=== PATIENT | female | born 1985 | race Caucasian/White ===

== ENCOUNTER 2017-05-27 11:05 | Outpatient (CLI) | payer MEDICAID ==
[2017-05-27 11:29] LABS: BASOPHILS # (AUTO) 0.2 10^3/uL (0.0-0.1); BASOPHILS % (AUTO) 1.8 %; EOSINOPHILS % (AUTO) 0.5 %; HCT - HEMATOCRIT 38.1 % (37.0-47.0); HGB - HEMOGLOBIN 13.3 g/dL (12.0-16.0); LYMPHOCYTES # (AUTO) 1.1 10^3/uL (1.5-3.5); LYMPHOCYTES % (AUTO) 12.1 %; MEAN CORPUSCULAR HGB CONC 34.9 g/dL (32.0-36.0); MEAN CORPUSCULAR VOLUME 88.9 fL (81.0-99.0); MEAN PLATELET VOLUME 9.7 fL (7.9-10.8); MONOCYTES # (AUTO) 0.3 10^3/uL (0.0-1.0); MONOCYTES % (AUTO) 3.7 %; NEUTROPHILS # (AUTO) 7.7 10^3/uL (1.5-6.6); NEUTROPHILS % (AUTO) 81.9 %; RED BLOOD COUNT 4.29 10^6/uL (4.20-5.40); RED CELL DISTRIBUTION WIDTH 12.8 % (12.0-15.0); UNCORRECTED WHITE BLOOD COUNT 9.4 x10^3/uL; WHITE BLOOD COUNT 9.4 x10^3/uL (4.8-10.8)
[2017-05-27 12:26] LABS: BILIRUBIN,URINE NEGATIVE (NEGATIVE)
[2017-05-27 12:42] LABS: WBC,URINE 0-3 /HPF (0-5)
== END 2017-05-27 11:06 | disposition home or self-care (01) ==
LOC: LAB 11:05
PROVIDERS: ATTEND Obstetrics & Gynecology
DX: Z36 Encounter for antenatal screening of mother (principal)
CPT/HCPCS: 36415; 81001; 81599; 85025; 86762; 86850; 86900; 86901; 87340; 87389

== ENCOUNTER 2017-07-15 10:41 | Outpatient (CLI) | payer MEDICAID ==
[2017-07-16 12:31] LABS: TEST RESULT REPORT
== END 2017-07-15 10:42 | disposition home or self-care (01) ==
LOC: LAB 10:41
PROVIDERS: ATTEND Obstetrics & Gynecology
DX: Z13.79 Encounter for other screening for genetic and chromosomal anomalies (principal)
CPT/HCPCS: 36415; 81599; 82105; 82677; 84702; 86336

== ENCOUNTER 2017-08-16 12:34 | Outpatient (CLI) | payer MEDICAID ==
--- NOTE | 2017-08-20 16:38 | Ultrasound Report ---
ULTRASOUND ANATOMIC SURVEY: 08/16/2017 TECHNIQUE: Real-time scanning was performed with visitor services representative static images obtained. LAST MENSTRUAL PERIOD 03/22/2017 Clinical Age 21 weeks 0 days US Age 21 weeks 0 days EFW [place] 414 g EFW% Hadlock --- Heart Rate 144 bpm [facility] 12/27/2017 US EDC 12/27/2017 BPD [place] 21 weeks 0 days; Mean mm 49.4 HC [place] 20 weeks 5 days; Mean mm 184.0 AC [place] 21 weeks 6 days; Mean mm 168.6 FL [place] 20 weeks 6 days; Mean mm 34.4 Presentation breech Placental Location posterior Cervical Length 5.1 cm Amniotic Fluid --- FINDINGS: heart rate 144 beats per minute. EGA clinical established 21 weeks 0 days with GODFREY 12/27/2017. EGA via current ultrasound also 21 weeks 0 days, GODFREY 12/27/2017. Variable presentation. Placenta location posterior without evidence of placenta previa. There is fluid in the cervix although no specific funneling is seen. On one of the images, there is concern for a possible incomplete interatrial septum. No other discrete cardiac abnormality is seen. The left and right ventricular outflow tracts appear normally configured. The following anatomy is visualized: Head, spine, profile, nose-lips, upper and lower extremities, 4 chamber heart, LVOT, RVOT, stomach, kidneys, bladder, diaphragm, cord insertion, and 3 vessel cord. IMPRESSION: 1. THERE IS FLUID IN THE CERVIX. FOLLOWUP IS NEEDED, ALTHOUGH NO DISTINCT CERVICAL FUNNELING IS SEEN ON THIS EXAM. 2. POSSIBLE INCOMPLETE INTERATRIAL SEPTUM. STRONGLY CONSIDER MATERNAL MEDICINE CONSULTATION. NO OTHER ANOMALIES. 3. EGA 21 WEEKS 0 DAYS WITH [facility]RE[facility] 12/27/2017. [facility]
== END 2017-08-16 12:35 | disposition home or self-care (01) ==
LOC: DI 12:34
PROVIDERS: ATTEND Obstetrics & Gynecology
DX: Z36.9 Encounter for antenatal screening, unspecified (principal); O28.8 Other abnormal findings on antenatal screening of mother; Z3A.21 21 weeks gestation of pregnancy
CPT/HCPCS: 76811

== ENCOUNTER 2017-09-11 09:21 | Outpatient (CLI) | payer MEDICAID ==
[2017-09-11 10:45] LABS: HGB - HEMOGLOBIN 12.3 g/dL (12.0-16.0); MEAN CORPUSCULAR HEMOGLOBIN 30.8 pg (27.0-31.0); MEAN CORPUSCULAR HGB CONC 34.4 g/dL (32.0-36.0); MEAN CORPUSCULAR VOLUME 89.5 fL (81.0-99.0); MEAN PLATELET VOLUME 9.8 fL (7.9-10.8); RED CELL DISTRIBUTION WIDTH 13.3 % (12.0-15.0); WHITE BLOOD COUNT 9.5 x10^3/uL (4.8-10.8)
== END 2017-09-11 09:22 | disposition home or self-care (01) ==
LOC: LAB 09:21
PROVIDERS: ATTEND Obstetrics & Gynecology
DX: Z34.90 Encounter for supervision of normal pregnancy, unspecified, unspecified trimester (principal)
CPT/HCPCS: 36415; 82950; 86850

== ENCOUNTER 2017-11-12 11:03 | Outpatient (CLI) | payer MEDICAID | END 2017-11-12 11:04 | disposition home or self-care (01) | LOC: LAB 11:03 | PROVIDERS: ATTEND Obstetrics & Gynecology | DX: J10.1 Influenza due to other identified influenza virus with other respiratory manifestations (principal) | CPT/HCPCS: 87275; 87276 ==

== ENCOUNTER 2017-11-26 12:00 | Outpatient (CLI) | payer MEDICAID | END 2017-11-26 12:01 | disposition home or self-care (01) | LOC: LAB.R 12:00 | PROVIDERS: ATTEND Obstetrics & Gynecology | DX: Z36.85 Encounter for antenatal screening for Streptococcus B (principal) | CPT/HCPCS: 87081 ==

== ENCOUNTER 2017-12-31 23:25 | Inpatient (IN) | payer MEDICAID ==
[2018-01-01] MEDS ORDERED: SODIUM CHLORIDE FLUSH 0.9% 10 ML SYRINGE IVP PRN (01:18)
[2018-01-01] MEDS ORDERED: ONDANSETRON 4 MG/2 ML VIAL IVP PRN ×2 (01:22→03:22)
[2018-01-01] MEDS: LACTATED RINGERS 1,000 ML IV SCH ×3 (01:47→18:10)
[2018-01-01] MEDS ORDERED: OXYTOCIN/SODIUM CHLORIDE 500 ML IV ONE (01:54)
[2018-01-01 02:31] LABS: BASOPHILS % (AUTO) 0.2 %; EOSINOPHILS # (AUTO) 0.1 10^3/uL (0.0-0.7); HGB - HEMOGLOBIN 11.5 g/dL (12.0-16.0); LYMPHOCYTES # (AUTO) 1.6 10^3/uL (1.5-3.5); MEAN CORPUSCULAR HEMOGLOBIN 27.8 pg (27.0-31.0); MEAN CORPUSCULAR HGB CONC 33.2 g/dL (32.0-36.0); MEAN CORPUSCULAR VOLUME 83.6 fL (81.0-99.0); MEAN PLATELET VOLUME 10.8 fL (7.9-10.8); MONOCYTES # (AUTO) 0.6 10^3/uL (0.0-1.0); MONOCYTES % (AUTO) 5.7 %; NEUTROPHILS # (AUTO) 8.9 10^3/uL (1.5-6.6); NEUTROPHILS % (AUTO) 79.1 %; PLT - PLATELET COUNT 191 10^3/uL (130-450); RED BLOOD COUNT 4.12 10^6/uL (4.20-5.40); RED CELL DISTRIBUTION WIDTH 15.7 % (12.0-15.0); WHITE BLOOD COUNT 11.3 x10^3/uL (4.8-10.8)
[2018-01-01] MEDS ORDERED: BUPIVACAINE 0.25% PF 30 ML VIAL SUBQ ONE (03:00)
[2018-01-01] MEDS ORDERED: fent/BUPIV 2 MCG/0.125% 250 ML EP ONE (03:18)
[2018-01-01] MEDS ORDERED: LACTATED RINGERS 500 ML IV ONE (03:22)
[2018-01-01] MEDS ORDERED: NALOXONE 0.4 MG/ML VIAL IVP PRN (03:22)
[2018-01-01] MEDS ORDERED: fent/BUPIV 2 MCG/0.125% 250 ML EP PRN (03:22)
[2018-01-01] MEDS ORDERED: ePHEDrine 50 MG/ML VIAL IVP PRN (03:22)
[2018-01-01] MEDS ORDERED: NALBUPHINE 20 MG/ML AMP IVP PRN (03:22)
[2018-01-01] MEDS ORDERED: OXYTOCIN/SODIUM CHLORIDE 500 ML IV SCH (05:33)
--- NOTE | 2018-01-01 07:41 | HISTORY & PHYSICAL EXAMINATION ---
Admit History - Instructions [place]ash: -Left hand click circles element as positive or present. -Right hand click slashes element as negative or not present. - Visit Reason Visit Reason: Contractions (Pt developed Contractions yesterday at 0500. was seen in the clinic and was 2/80/-3. contractions became very painful at 2400. presented to L&D about 0100, monitored for 1 hour andnoted to change. adimtted for labor. Epidurla placed for paijn control. AROM at about 0610. Cx at 0530 was 5/100/-1.) - : 3 Parity: 1 Premature: 0 Ectopic: 0 : 1 Care: positive: [facility] (Pt was started on OB visits at 9.3 weeks Regular visits. Labs O+, 103 50 gm. Rhubella immune.) Risk/History: positive: None Complications This : positive: None Smoking Status: Never smoker - Mother's Labs Mother's Blood Type: positive: O Mother's RH: positive: Positive GBS: positive: Group B Step Negative Rubella Status: positive: Immune Meds/Allgy - Allergies Allergies/Adverse Reactions: Allergies Allergy/AdvReac Type Severity Reaction Status Date / Time No Known Drug Allergies Allergy Verified 01/01/18 01:17 Review of Systems - Constitutional Constitutional: reports: Fatigue - Eyes Eyes: denies: Pain - Ears, Nose & Throat Ears, Nose & Throat: denies: Ear pain, Hearing loss - Cardiovascular Cariovascular: denies: Irregular heart rate, Palpitations - Respiratory Respiratory: denies: Cough - Gastrointestinal Gastrointestinal: denies: Abdominal pain - Genitourinary Genitourinary: denies: Dysuria - Musculoskeletal Musculoskeletal: denies: Muscle pain Physical - Abdominal Exam Vital Signs: Temp Pulse Resp BP Pulse Ox 36.6 C 95 18 148/85 H 97 12/31/17 23:42 12/31/17 23:42 12/31/17 23:42 12/31/17 23:42 12/31/17 23:42 Contraction Intensity: positive: Moderate to strong, Irritability - Monitoring Strip Review: positive: Category I - Presentation Presentation: positive: Vertex - Vaginal Exam Membranes: positive: Membranes ruptured (0610) Dilation (in cm): 5 Effacement (%): 100 Station: positive: -1 Cervical Position: positive: Anterior - Speculum Exam Speculum Exam Performed: positive: No Findings: positive: Gross leak Plan for Labor - Plan For Labor I expect patient to be DC'd or transferred within 96 hours.: Yes Plan for Labor: Pitocin has been started.
--- NOTE | 2018-01-01 09:08 | PROVIDER PROGRESS NOTE ---
Labor Progress Note - Uterine Monitoring Uterine Monitoring Mode: positive: External toco Contraction Frequency (min/apart): 2-3 on pitocin Contraction Intensity: positive: Moderate to strong Uterine Resting Tone: positive: Soft - Monitoring Monitor Mode: positive: External ultrasound Heart Rate Variability: positive: Moderate (6-25 bmp) Accelerations: positive: Present, 15x15 Decelerations: positive: None Strip Review: positive: Category I - Vaginal Exam Dilation (in cm): (Deferred but /-1 at last check) - Labor Progress Note Labor Progress Note/Additional Text: 32 yo with a 40w5d IUP Active labor SROM 06:11, clear fluid S/p epidural placement around 01:14 Last CVE /-1 at about 05:30 Pitocin augmentation Continue pitocin and epidural Prepare for shoulder dystocia given history of shoulder dystocia with first child, a female. This is a male fetus. Expect delivery later this AM Labs, EKG, Meds, Allergy - Lab Results Fish Bones: 01/01/18 01:30 Other Lab Results: Lab Results x24hrs 01/01/18 Range/Units 01:30 WBC 11.3 H (4.8-10.8) x10^3/uL RBC 4.12 L (4.20-5.40) 10^6/uL Hgb 11.5 L (12.0-16.0) g/dL Hct 34.5 L (37.0-47.0) % MCV 83.6 (81.0-99.0) fL MCH 27.8 (27.0-31.0) pg MCHC 33.2 (32.0-36.0) g/dL RDW 15.7 H (12.0-15.0) % Plt Count 191 (130-450) 10^3/uL MPV 10.8 (7.9-10.8) fL Neut # 8.9 H (1.5-6.6) 10^3/uL Lymph # 1.6 (1.5-3.5) 10^3/uL Williamson # 0.6 (0.0-1.0) 10^3/uL Eos # 0.1 (0.0-0.7) 10^3/uL Baso # 0.0 (0.0-0.1) 10^3/uL Absolute Nucleated RBC 0.00 x10^3/uL Nucleated RBC % 0.0 /100WBC - Allergy Allergy: Allergies Allergy/AdvReac Type Severity Reaction Status Date / Time No Known Drug Allergies Allergy Verified 01/01/18 01:17
[2018-01-01] MEDS ORDERED: LIDOCAINE 1% 50 ML MDV ONE (15:24)
[2018-01-01] MEDS ORDERED: HYDROCORTISONE 1% CREAM 28 GM TUBE PR PRN (15:50)
[2018-01-01] MEDS ORDERED: WITCH HAZEL/GLYCERIN 1 EACH MED..PAD TOP PRN (15:50)
[2018-01-01] MEDS ORDERED: OXYTOCIN/SODIUM CHLORIDE 250 ML IV ONE (15:50)
[2018-01-01] MEDS ORDERED: HYDROcod/ACETAM 5/325 MG TABLET PO PRN (15:50)
--- NOTE | 2018-01-01 15:50 | DELIVERY NOTE ---
Delivery Note - Labor Labor: positive: Spontaneous, Augmented by oxytocin - Delivery Method Delivery Method: positive: Spontaneous vaginal delivery - Presentation Presentation: positive: Vertex, OA - occiput anterior - Nuchal Cord Nuchal Cord: positive: None - Anesthetic Anesthetic: positive: Lidocaine - 1% plain Volume: positive: 5cc - Amniotic Fluid Description Amniotic Fluid Description: positive: Clear - Episiotomy Type Episiotomy Type: positive: None - Laceration Laceration: positive: 2nd degree, Labial - Suture Suture Type: positive: Vicryl Suture Size: positive: 4-0 - Delivery Outcome Delivery Outcome: positive: Livebirth - [place]: positive: Placed in direct skin contact with mother, Bulb syringe sex: positive: Male : 9 : 9 - Cord Cord: positive: 3 vessels - Placenta Placenta: positive: Intact, Spontaneous - Estimated Blood Loss Estimated Blood Loss (in cc): 250 - Post Delivery Events Post Delivery Events: positive: No post delivery events - Delivery Comments (Free Text/Narrative) Delivery Comments (Free Text/Narrative): 32 yo with a 40w5d IUP presented in active labor. After SROM, epidural was used for pain controlled. Pitocin for augmentation. of a viable male fetus, "Ej Dacosta, V" with Apgars 9/9. No shoulder dystocia. EBL 250 mL. 2nd degree left labia majora laceration repaired with 3-0 vicryl. Placenta delivered spontaneously, intact, 3VC. No complications. Rx faxed to [facility] for care at home.
[2018-01-01] MEDS: SODIUM CHLORIDE FLUSH 0.9% 10 ML SYRINGE IVP SCH ×2 (15:53→18:10)
[2018-01-01] MEDS: ACETAMINOPHEN 325 MG TABLET PO PRN (17:28)
[2018-01-01] MEDS ORDERED: AMOXICILLIN 200 MG/5 ML SYRINGE PO ONE (20:14)
[2018-01-01] MEDS: CELECOXIB 100 MG CAPSULE PO SCH (22:49)
[2018-01-02] MEDS: HYDROCORTISONE/PRAMOXINE 10 GM PR SCH ×5 (01:15→21:30)
[2018-01-02] MEDS: ACETAMINOPHEN 325 MG TABLET PO PRN ×3 (03:58→13:57)
--- NOTE | 2018-01-02 08:35 | PROVIDER PROGRESS NOTE ---
Subjective - Prog Note Date Prog Note Date: 01/02/18 Prog Note Time: 08:34 - Subjective Subjective: Sitting in bed. Feeling very sore. Heavy bleeding that is improving. Denies passing clots. No fevers or chills. Narinder Pagan has not urinated yet. Objective - Vital Signs/Intake & Output Vital Signs: Vital Signs x48h Temp Pulse Resp BP Pulse Ox 01/02/18 07:40 98.1 F 84 18 118/74 99 01/02/18 04:20 97.7 F 68 16 133/73 H 99 Intake & Output: Intake & Output 12/30/17 12/31/17 01/01/18 01/02/18 23:59 23:59 23:59 23:59 Intake Total 3200.317 450 Output Total 5270 200 Balance -2069.683 250 - Objective General Appearance: positive: No acute distress Eyes Bilateral: positive: Normal inspection Abdomen: positive: Non-tender (Firm fundus) Extremities: positive: Non-tender Neurologic/Psychiatric: positive: Oriented x3 - Lab Results Fish Bones: 01/01/18 01:30 Assessment/Plan - Problem List (1) Vaginal delivery Impression: 32 yo S/p 01/01/2018, PPD #1 Normal recovery Urinating well Heavier lochia but WNL Routine care Anticipate discharge to home tomorrow 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
--- NOTE | 2018-01-02 09:29 | DISCHARGE SUMMARY ---
Physician: Nita Dale DO DATE OF ADMISSION: 01/01/2018 DATE OF DISCHARGE: 01/03/2018 DIAGNOSES ON ADMISSION 1. A 32-year-old, G3, P1-0-1-1 with a 40 and 5/7 week intrauterine . 2. Active labor. DIAGNOSES AT DISCHARGE 1. A 32-year-old, G3, P2-0-1-2 status post spontaneous vaginal delivery on . 2. Normal recovery. BRIEF HISTORY: Patient is a patient of [facility] who presented on 01/01/2018 with complaints of contractions. Patient was admitted to the hospital as she was found to be in active labor. She later received an epidural for pain control and then Pitocin for augmentation. Patient progressed and spontaneously delivered a viable male infant named Ej Ramirez V. He weighed 8 pounds 13 ounces. EBL was 250 mL. Patient sustained a second- degree left labial laceration that was repaired with 3-0 Vicryl. There were no complications. It was noted antenatally that patient's baby had a duplicated left renal collecting system. Pediatric Nephrology saw patient and recommended that Pediatrics place the baby on amoxicillin 12-50 mg/kg per day and a followup renal scan in 1-2 weeks of life. Patient currently is recovering well. She is ambulating and tolerating a regular diet. Patient did have an elevated temperature the evening of her delivery, but this has resolved after 1 dose of 650 mg of Tylenol. Patient also had some urinary retention and had her bladder straight catheterized once. Now, she is able to completely empty her bladder. Patient will be discharged to home on day #2, 01/03/2018. Patient is to not lift anything heavier than a gallon of milk. She will be given a prescription for Vicodin for breakthrough pain. Prescriptions for Motrin and Colace have already been sent to [facility] in [place], [place]. Patient is to see me at 3 and 8 weeks after delivery for routine examinations. Patient is to call should she have any worsening fevers, chills, abdominal pain or vaginal bleeding. TD: 01/02/2018 09:29 IGNACIA
[2018-01-02] MEDS: CELECOXIB 100 MG CAPSULE PO SCH ×2 (10:43→22:44)
[2018-01-02] MEDS: LACTATED RINGERS 1,000 ML IV SCH ×4 (10:43→21:29)
[2018-01-02] MEDS: SODIUM CHLORIDE FLUSH 0.9% 10 ML SYRINGE IVP SCH ×3 (10:48→21:29)
[2018-01-02] MEDS ORDERED: AMOX/CLAV 200 MG/28.5 MG/5 ML SYRINGE ONE (20:31)
[2018-01-03] MEDS: ACETAMINOPHEN 325 MG TABLET PO PRN (05:49)
[2018-01-03] MEDS: SODIUM CHLORIDE FLUSH 0.9% 10 ML SYRINGE IVP SCH (06:00)
[2018-01-03] MEDS: LACTATED RINGERS 1,000 ML IV SCH (06:00)
--- NOTE | 2018-01-03 09:10 | PROVIDER PROGRESS NOTE ---
Subjective - Prog Note Date Prog Note Date: 01/03/18 Prog Note Time: 09:10 - Subjective Pt reports feeling: Improved Subjective: Patient in bed, holding baby. Baby latching well and has urinated. Baby on antibiotics per pediatric nephrology recommendation. Patient herself doing well although feeling pressure in the pelvis. Pain tolerated with po meds. Normal lochia, urinating well. Tolerating a regular diet. Objective - Vital Signs/Intake & Output Vital Signs: Vital Signs x48h Temp Pulse Resp BP Pulse Ox 01/03/18 04:29 97.9 F 75 18 119/69 99 Intake & Output: Intake & Output 12/31/17 01/01/18 01/02/18 01/03/18 23:59 23:59 23:59 23:59 Intake Total 3200.317 450 Output Total 5270 200 Balance -2069.683 250 - Objective General Appearance: positive: No acute distress Eyes Bilateral: positive: Normal inspection Abdomen: positive: Non-tender Skin: positive: Color nml Neurologic/Psychiatric: positive: Oriented x3 - Lab Results Fish Bones: 01/01/18 01:30 Assessment/Plan - Problem List (1) Vaginal delivery Impression: 32 yo S/p 01/01/2018 Normal recovery Routine care Discharge to home today Follow up with myself at [facility] in 3 and 8 weeks Rx for motrin and colace sent to [facility]. Handwritten Rx vicodin. No lifting > 10 lbs Call for worsening fevers, chills, abdominal pain or vaginal bleeding Discharge Plan Disposition: Home, Self Care Condition: Good Diet: Regular Activity Restrictions: Activity as Tolerated Shower Restrictions: No Driving Restrictions: Yes (Do not drive after taking vicodin) Weight Bearing: Full Weight No Smoking: If you smoke, Please STOP! Call for help.
[2018-01-03] MEDS: CELECOXIB 100 MG CAPSULE PO SCH (10:39)
[2018-01-03 15:20] VITALS: BP 142/77
--- NOTE | 2018-01-03 17:21 | Labor Flowsheet ---
Labor Flowsheet Datetime Report Generated by CPN: 01/03/2018 17:21 Datetime: 01/03/2018 12:49 VITAL SIGNS NBP Sys/Lisa/Mean (mmHg): 142 : 77 : 89 Pulse: 73 LaborFlag: Labor Datetime: 01/02/2018 18:54 SpO2 (%): 100 Datetime: 01/01/2018 15:18 Membranes Ruptured Date/Time: 01/01/2018 06:11 Datetime: 01/01/2018 15:00 UTERINE ACTIVITY Monitor Mode: External Frequency (min): 1.5-3 Quality: Strong Duration (sec): 60-80 Pattern: Normal: <= 5 Contractions in 10 Minutes Resting Tone (Palpate): Relaxed ASSESSMENT A Monitor Mode: External US FHR Baseline Rate : 170 FHR Baseline Changes: Tachycardia Variability: Moderate 6-25 bpm Accelerations: None Decelerations: Variable Category: Category II Oxygen Method: Room Air Datetime: 01/01/2018 14:44 Stage of : Labor Provider Reviewed Strip: Yes COMMUNICATION Communication: Provider at Bedside Notification Reason: Labor Status Datetime: 01/01/2018 14:30 Anesthesia Level Check: T9 Datetime: 01/01/2018 14:29 STAGE 2 Pushing: Coached on Pushing; Urge to Push Pushing Position: Pushing with Contractions Pushing Progress: Pushing Effectively with Contractions Datetime: 01/01/2018 13:30 Monitor Interventions for UA: [place] Adjusted Datetime: 01/01/2018 13:00 PAIN Pain Presence: Intermittent Pain Type: Contraction; Pressure Pain Location: Perineum Pain Coping: Talking Through Contractions; Breathing Through Contractions; Sleeping Comfort Measures: Breathing/Relaxation Datetime: 01/01/2018 12:10 VAGINAL EXAM Dilatation (cm): 10.0 Effacement (%): 100 Station: 0 Exam by: Bonifacio Arias RN I/O Interventions: Straight Cath (ml) @ (Annotations: 520) Datetime: 01/01/2018 11:20 Temperature (C): 37.0 Amniotic Fluid Color: Clear MATERNAL ASSESSMENT Level of Consciousness: Lethargy DTR's/Clonus: DTRs 2+; No Clonus Headache: Denies Breath Sounds, Left: Clear and Equal Breath Sounds, Right: Clear and Equal Nausea/Vomiting: Denies RUQ Epigastric Pain: Denies Patient Position/Activity: Left Tilt; High Fowlers Hygiene: Underpad Changed ANESTHESIA Anesthesia Plans: Epidural Datetime: 01/01/2018 10:58 Patient Care Comments: Pt asleep Datetime: 01/01/2018 10:24 Labor/Induction: Labor Stages Related: Activity and Rest Datetime: 01/01/2018 10:02 Comments: O2 off Datetime: 01/01/2018 10:01 Respirations: 18 Datetime: 01/01/2018 09:40 Actions for Decelerations: Side to Side; Oxygen Applied PATIENT CARE Oxygen Amount (LPM): 2 Datetime: 01/01/2018 09:00 TEACHING Instructional Method: Verbal Plan of Care: Plan of Care Discussed; Vaginal Delivery; Labor Unit Routine: [place] to Room Datetime: 01/01/2018 08:56 Vaginal Bleeding: Normal Show Cervix, Consistency: Soft Lie 'A': Longitudinal Position 'A': Right Occipital Anterior Procedures: Sterile Vag Exam Datetime: 01/01/2018 08:23 Pain Assessment Comments: Educated pt about signs and symptoms of progressing towards final stage o f delivery Datetime: 01/01/2018 07:49 Monitor Interventions for FHR: Ultrasound Adjusted Datetime: 01/01/2018 07:32 Communication Comments: Dr. Giem @ bedside for assessment and to answer questions with pt. Talked a bout POC. Datetime: 01/01/2018 07:23 Pain Relief Measures: COPER HAND Use Datetime: 01/01/2018 06:11 Membrane Status: Ruptured Membranes Rupture Method: Spontaneous Amniotic Fluid Amount: Small Amniotic Fluid Odor: Normal Nitrazine: Positive Datetime: 01/01/2018 06:08 MEDICATIONS Pitocin (milliunits): Increased to @ 2 Datetime: 01/01/2018 05:58 Cervix, Position: Anterior Vaginal Exam Comments: bulgey bag of water Datetime: 01/01/2018 05:00 Contraction Comments: pt sleeping Datetime: 01/01/2018 03:13 Epidural Procedure Other: Pump Started Datetime: 01/01/2018 03:06 Anesthesia Comments: lying down Datetime: 01/01/2018 03:00 Epidural Procedure: Test Dose Datetime: 01/01/2018 02:52 PROCEDURE TIME OUT Procedure Verify: Correct Patient Identity; Accurate Procedure Consent Form; Agreement on Procedure to be Done; Correct Patient Position Epidural Positioning: Sitting
--- NOTE | 2018-01-06 10:10 | PREOP HISTORY & PHYSICAL ---
DATE OF SERVICE: 01/01/2018 Physician: Nita Dale DO IDENTIFICATION: This is a 32-year-old G3, P1-0-1-1, with a 40-5/7-week intrauterine . EDC is 12/27/2017, consistent with a 9-week ultrasound. HISTORY OF PRESENT ILLNESS: Patient presents for an elective induction of labor. She was last seen at [facility] [place] for her routine visit on 12/26/2017. During the examination, her cervix was closed, 50% effaced, and -3 station, posterior and firm. She stated that she would like to be induced if she is still gravid this week. I discussed with her the risks, benefits, alternatives, indications, expectations of an elective induction of labor. Assuming that her cervix has not changed since her last examination, I anticipate giving her Cytotec and then Pitocin once her cervix is more favorable. When the baby has descended enough that the head is well applied, I will anticipate giving her an epidural and then artificially rupturing her membranes at that point in time. After all of patient's questions were answered to her satisfaction, she verbalized her desire to proceed with induction of labor. We will have patient sign consent forms. Patient stated that the baby, with anticipated name of Ej Turenr V, was moving well. She denied any vaginal bleeding, loss of fluid. She has been having irregular contractions but nothing significant to the point where she would have labor. This has been essentially unremarkable. She has been getting consistent care. She received her flu vaccine on 06/24/2017 and a Tdap on 10/08/2017. Dr. Cruz is her knitting machine fixer head of choice, and she anticipates to breastfeed as well as to have an epidural for pain control. PAST MEDICAL HISTORY: Anxiety. PAST SURGICAL HISTORY: Ear tubes x3 in 1995. ALLERGIES: NO KNOWN DRUG ALLERGIES. MEDICATIONS: vitamins. SOCIAL HISTORY: She denies any tobacco, alcohol, or illicit drug use. Patient' s oldest child is Zac, and again this is a male with anticipated name of Ej Dacosta V. Her significant other is Ej Dacosta IV. Patient's pharmacy of choice is [email or web address] in [place], [place]. PAST OBSTETRICAL HISTORY 1. One spontaneous at 6 weeks' gestation in May 2016. 2. 06/25/2011 she vaginally delivered a viable female infant named Zac at 40 weeks' gestation weighing 7 pounds 13 ounces. There was a mild shoulder dystocia at that point in time. PAST GYNECOLOGICAL HISTORY: She denied any abnormal Pap smears or sexually transmitted diseases. FAMILY HISTORY: No female carcinoma. REVIEW OF SYSTEMS: Negative unless otherwise stated. She denies any nausea, vomiting, fevers, chills, diarrhea, constipation. OBJECTIVE VITAL SIGNS: She is 62 inches tall, and her most recent check was 198 pounds. Blood pressure 116/72. GENERAL: She is a well-developed, well-nourished, female, in no apparent distress. She is alert and oriented x3, appeared very pleasant and easy to speak to. HEENT: Within normal limits. She does wear glasses. CARDIOVASCULAR: Rate is regular, no murmurs or rubs. PULMONARY: Lungs are clear to auscultation bilaterally. ABDOMEN: Gravid, nontender. Fundal height is appropriate to gestational age. LABORATORY: Data show a negative Pap smear. She is O-positive, antibody screen negative. Chlamydia and gonorrhea are negative. HIV is nonreactive. RPR nonreactive. Rubella is immune. Hepatitis B surface antigen is negative. Quad screen is negative. One-hour GTT is 103. GBS is negative. The anatomical survey was consistent with dates and within normal limits. Placenta was posterior with a cervix measuring 5.1 cm. There were some concerns for cardiac examination, and the patient was referred to Maternal Medicine for further evaluation. A 09/16/[address] George Fernando showed duplication of the left kidney with 2 separate calices. No dilatation, no ureterocele in the bladder. Right kidney had a normal appearance. Rest of the detail is negative. Male fetus. No obvious cardiac defect noted on sonogram today. She had further followup with Dr. Greg Lee on 11/04/2017, and the baby was in the 89th percentile with EFW 2372 grams. The baby was 32 weeks 3 days at that point in time. The inferior pole of the left kidney had mild to moderate renal pelvis dilatation 9-10 mm. The proximal ureter was minimally dilated at 3 mm. Right kidney appeared normal. The patient wanted to see a truck and transport mechanic prior to delivery, and a conference was set up. Anticipate nephrology recommendation to give prophylactic antibiotics daily for the baby at , specifically for amoxicillin 12-15 mg/kg per day and followup renal scans at 1-2 weeks of life. The patient may deliver at [facility] safely. Finally, her last [facility] visit on 12/02/2017 at [address] Cristine Greer, recommended prophylactic antibiotics as recommended. EFW was 3006 grams, 60% with evidence of normal interval growth. ASSESSMENT 1. A 32-year-old G3, P1-0-2-1 with a 40-5/7-week intrauterine . 2. Cervix remote from delivery. 3. History of mild shoulder dystocia with last delivery. 4. 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 PLAN 1. We will anticipate admission to observation for patient on 01/01/2018 with Cytotec cervical ripening. 2. Anticipate giving patient an epidural and then artificially rupturing when appropriate. 3. Prepare for shoulder dystocia, given this is a male fetus. 4. We will relate to Pediatrics that the fetus most likely will need amoxicillin after , as well as a followup renal scan at 1-2 weeks of life. TD: 12/30/2017 18:33 MTDD
== END 2018-01-03 13:00 | disposition home or self-care (01) | DRG 775 ==
LOC: WFO 23:25 → FBP 23:30 → WFO 01-01 01:15 → FBP 01-01 01:18
PROVIDERS: ADMIT Obstetrics & Gynecology; ATTEND Obstetrics & Gynecology
PROC: 10E0XZZ Delivery of Products of Conception, External Approach (ICD-10-PCS; principal; 2018-01-01)
DX: O48.0 Post-term pregnancy (principal); Z37.0 Single live birth; O70.1 Second degree perineal laceration during delivery; Z3A.40 40 weeks gestation of pregnancy; Z86.59 Personal history of other mental and behavioral disorders
CPT/HCPCS: 36415; 85025; 99212

== ENCOUNTER 2018-02-10 08:00 | Outpatient (CLI) | payer MEDICAID ==
[2018-02-10 12:53] LABS: BASOPHILS % (AUTO) 0.6 %; EOSINOPHILS # (AUTO) 0.1 10^3/uL (0.0-0.7); EOSINOPHILS % (AUTO) 1.7 %; HGB - HEMOGLOBIN 13.2 g/dL (12.0-16.0); LYMPHOCYTES # (AUTO) 1.4 10^3/uL (1.5-3.5); LYMPHOCYTES % (AUTO) 19.4 %; MEAN CORPUSCULAR HEMOGLOBIN 27.6 pg (27.0-31.0); MEAN CORPUSCULAR HGB CONC 33.5 g/dL (32.0-36.0); MEAN CORPUSCULAR VOLUME 82.6 fL (81.0-99.0); MEAN PLATELET VOLUME 10.1 fL (7.9-10.8); MONOCYTES # (AUTO) 0.4 10^3/uL (0.0-1.0); MONOCYTES % (AUTO) 5.3 %; NEUTROPHILS # (AUTO) 5.4 10^3/uL (1.5-6.6); PLT - PLATELET COUNT 246 10^3/uL (130-450); RED BLOOD COUNT 4.78 10^6/uL (4.20-5.40); RED CELL DISTRIBUTION WIDTH 16.1 % (12.0-15.0); WHITE BLOOD COUNT 7.4 x10^3/uL (4.8-10.8)
[2018-02-10 13:02] LABS: ALBUMIN 4.6 g/dL (3.2-5.5); ALBUMIN/GLOBULIN RATIO 1.4 (1.0-2.2); BILIRUBIN,TOTAL 0.4 mg/dL (0.2-1.0); CALCIUM 9.3 mg/dL (8.5-10.3); CREATININE 0.8 mg/dL (0.4-1.0); TOTAL PROTEIN 7.9 g/dL (6.7-8.2)
== END 2018-02-10 08:01 | disposition home or self-care (01) ==
LOC: LAB.N 08:00
PROVIDERS: ATTEND Nurse Practitioner
DX: R03.0 Elevated blood-pressure reading, without diagnosis of hypertension (principal)
CPT/HCPCS: 36415; 80053; 85025